=== PATIENT | male | born 2000 | race Caucasian/White ===

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

== ENCOUNTER 2020-06-27 15:09 | Day surgery (SDC) | payer BC, OTHER ==
[~2020-06-27 15:09] MED LIST: Dexamethasone 20 MG/5 ML VIAL ONE; Glycopyrrolate 0.2 MG/ML 5 ML SYRINGE ONE; Ondansetron PF 4 MG/2 ML Vial ONE; PROPOFOL 200 MG/20 ML VIAL ONE; Rocuronium Bromide 10 MG/ML (10ML VIAL) ONE; Succinylcholine 200 MG/10 ml SYRINGE FS ONE; diphenhydrAMINE 50 MG/ML VIAL ONE
[2020-06-27] MEDS ORDERED: Ketorolac Tromethamine 30 MG/ML VIAL ONE (15:32)
[2020-06-27 15:36] LABS: #Basophils 0.1 thou/uL (0.0-0.2); #Eosinphils 0.1 thou/uL (0.0-0.7); #Lymphocytes 1.8 thou/uL (1.20-3.40); #Monocytes 0.4 thou/uL (0.11-0.59); #Neutrophils 3.8 thou/uL (1.40-6.50); %Eosinophils 1.9 % (0.0-10.0); %Lymphocytes 29.4 % (21.0-51.0); %Neutrophils 60.7 % (42.0-75.0); Hemoglobin 15.7 g/dL (14.0-18.0); Mean Corpuscular HGB CONC 34.6 g/dL (32.0-36.0); Mean Corpuscular Hemoglobin 31.2 pg (27.0-31.0); Mean Corpuscular Volume 90.2 fL (78.0-98.0); Mean Platelet Volume 7.3 fL (7.4-10.4); Platelet Count 268 thou/uL (130-400); RBC Distribution Width 11.2 % (11.5-14.5); Red Blood Cell (RBC) Count 5.04 mill/uL (4.70-6.10); White Blood Cell (WBC) Count 6.2 thou/uL (4.8-10.8)
[2020-06-27 16:00] LABS: ALT (SGPT) 10 U/L (8-55); AST (SGOT) 15 U/L (5-34); Albumin 4.8 g/dL (3.5-5.0); Alkaline Phosphatase 86 U/L (40-110); Anion Gap 15 mmol/L (10-20); BUN (Urea Nitrogen) 18 mg/dL (8.9-20.6); Bilirubin, Total 1.4 mg/dL (0.2-1.2); Calc. Creatinine Clearance 0 mL/min (70-130); Calcium 9.7 mg/dL (7.8-10.44); Carbon Dioxide 27 mmol/L (22-29); Chloride 102 mmol/L (98-107); Globulin 2.8 g/dL (2.4-3.5); Glucose 95 mg/dL (70-105); Protein, Total 7.6 g/dL (6.0-8.3); Sodium 140 mmol/L (136-145)
--- NOTE | 2020-06-27 16:34 | ULT ---
Exam: Testicular ultrasound HISTORY: Right testicular pain. Evaluate for testicular torsion. COMPARISON: 06/28/2018 TECHNIQUE: Sagittal and transverse imaging of the left and right hemiscrotum are performed. Testicula r Doppler is performed with grayscale, color-flow, Doppler imaging and spectral waveform analysis. FINDINGS: Right hemiscrotum: Testicle: Homogeneous echotexture. No intratesticular masses. Right testicle measurements: 3.0 x 2.4 x 3.4 Right epididymis: Normal echotexture. Right epididymis measurements: 1.3 x 1.2 x 0.8 cm Hydrocele: None Left hemiscrotum: Left testicle: Homogeneous echotexture. No intratesticular masses. Left testicle measurements: 2.6 x 2.8 x 3.0 cm Left epididymis: Normal echotexture. Left epididymis measurements:0.8 x 0.9 x 1.0 cm Hydrocele: None Testicular Doppler: There is symmetric vascular flow to the left and right testicle. IMPRESSION: 1. Symmetric echotexture and vascularity of the testicles. No evidence of testicular torsion.
[2020-06-27] MEDS ORDERED: Bupivacaine 0.25% HCL 30 ML VIAL ONE (19:19)
[2020-06-27 19:45] LABS: SARS-CoV-2 NAA Rapid Test Not Detected (NotDetected)
[2020-06-27] MEDS ORDERED: Midazolam HCl 2 mg/2 ml Vial ONE (19:51)
[2020-06-27] MEDS ORDERED: Fentanyl 100 MCG/2 ML VIAL ONE ×2 (19:51)
[2020-06-27] MEDS ORDERED: Ketamine 50 MG/ML (10ML VIAL) ONE (20:09)
--- NOTE | 2020-06-27 20:39 | CON ---
DATE OF CONSULTATION: 06/27/2020 REASON FOR CONSULTATION: Right scrotal pain. HISTORY OF PRESENT ILLNESS: Mr. Murray is a 20-year-old gentleman with acute onset of right testicular pain. It began on the evening of 06/26/2020. It was not severe, but persistent. He has a prior history of torsion and was concerned about this possibility, but decided to wait to see if the pain will resolve on its own. He presented to the emergency room on 06/27/2020, as the pain is persistent. He denies any fevers or chills. Denies any dysuria. The pain did improve while in the emergency room. Scrotal ultrasound at that time demonstrated no evidence of torsion. PAST MEDICAL HISTORY: Testicular torsion. PAST SURGICAL HISTORY: Detorsion of the left testicle with bilateral orchiopexy in July of 2018. CHRONIC MEDICATIONS: None. ALLERGIES: NO KNOWN DRUG ALLERGIES. SOCIAL HISTORY: He is a student. Denies excessive alcohol use. Denies smoking or illicit drug use. PHYSICAL EXAMINATION: GENERAL: He is awake and alert. He is in no distress at this time. HEENT: Normocephalic and atraumatic. NECK: Supple without masses. CHEST: Clear to auscultation. CARDIOVASCULAR: Regular rate and rhythm. ABDOMEN: Soft and nontender. No palpable masses. Liver and spleen not palpable. No abdominal tenderness. : Scrotum demonstrates no skin lesions. There is no erythema noted. No significant swelling noted. LABORATORY DATA: Urinalysis, no evidence of infection. IMPRESSION: History of torsion two years ago with orchiopexy almost two years ago. He developed recurrent symptoms at this time, although this was not confirmed by ultrasound, it is possible that his testis has gone detorsed. I have discussed management options, which include observation with surgery if the symptoms recur versus proceed with surgical therapy at this time without any definitive evidence of torsion at this time. Based on his prior history and the symptoms, he has decided to proceed with surgical therapy. We have discussed the procedure, potential complications, limitations, and alternatives with him. PLAN: Right orchiopexy. Job ID: [id number]
[2020-06-27] MEDS ORDERED: Lidocaine 1% w/Epinephrine 1:100K 20 ML VIAL ONE (21:30)
[2020-06-27] MEDS ORDERED: Lidocaine 2% w/Epinephrine 1:200K 20 ML VIAL ONE (21:30)
[2020-06-27] MEDS ORDERED: Thrombin 5000 UNITS/5 ML VIAL ONE (21:30)
[2020-06-27] MEDS ORDERED: Sodium Chloride 0.9% 10 ML ONE (21:31)
[2020-06-27] MEDS ORDERED: Lidocaine 0.5%/Epinephrine 1:200,000 50 ml Vial ONE (21:34)
[2020-06-27] MEDS ORDERED: Sodium Chloride 0.9% 20 ML ONE (21:35)
[2020-06-27] MEDS ORDERED: HYDROcodone/Acetaminophen 5/325 mg Tablet ONE ×2 (21:43)
--- NOTE | 2020-06-27 22:29 | OP ---
DATE OF PROCEDURE: 06/27/2020 PREOPERATIVE DIAGNOSIS: Right testicular torsion. POSTOPERATIVE DIAGNOSIS: Right testicular torsion. PROCEDURE: Scrotal exploration, right orchiopexy. ANESTHESIA: General. INDICATIONS: Mr. Murray is a 20-year-old gentleman, who underwent bilateral orchiopexy 2 years ago for torsion. He developed right-sided scrotal pain reminiscent of his prior pain. By the time he presented to the ER, an ultrasound was performed. The ultrasound was normal. He is aware of the symptoms and was certain that the testicle had torsed and then detorsed. We offered him conservative management with no intervention unless it recurred versus orchiopexy. He opted to proceed with orchiopexy. DETAILS OF PROCEDURE: The patient was given general anesthesia, IV antibiotics. Sterilely prepped and draped in the supine position. A midline scrotal incision was made and carried down to the right testicle, which was mobilized outside the scrotum. The previously noted sutures were seen. Some were not attached to the tunica of the testicle and apparently had torn out. One, however, was still attached to the tunica. The testicle itself was not torsed at the time of the surgery. It was carefully placed in the appropriate anatomic position and then 3 sutures were placed to pexy this testicle in the proper orientation. A lateral, medial, and inferior 4-0 Prolene suture was used through the tunica in the scrotal wall to prevent torsion. After this was completed, the scrotal incision was closed with chromic suture. Two-layer closure was performed to bring the scrotal fascia together followed by interrupted chromic suture to bring the skin edges together. The patient tolerated procedure well, was transferred from the operative room to the recovery room in stable condition. COMPLICATION: None. ESTIMATED BLOOD LOSS: Less than 5 cc. Job ID: [id number]
== END 2020-06-27 22:12 | disposition home or self-care (01) ==
LOC: ERS 15:09 → SDC/OP 20:20
PROVIDERS: ATTEND Urology
PROC: 0VQ90ZZ Repair Right Testis, Open Approach (ICD-10-PCS; principal; 2020-06-27)
DX: N44.00 Torsion of testis, unspecified (principal); F17.220 Nicotine dependence, chewing tobacco, uncomplicated; Z20.828 Contact with and (suspected) exposure to other viral communicable diseases
CPT/HCPCS: 76870; 80053; 85025; 93976; 96374; J1100; J1200; J1885; J2001; J2250; J2405; J2704; J3010; J3490; S0020; U0002